=== PATIENT | male | born 1970 | race Caucasian/White ===

== ENCOUNTER 2018-07-11 16:16 | Emergency (ER) | payer SELFPAY ==
[2018-07-11 16:25] VITALS: BP 122/84
[2018-07-11] MEDS ORDERED: BUPIVACAINE HCL 0.5 % INJ/PF 30 ML SDV INJ ONE (16:38)
[2018-07-11] MEDS ORDERED: LIDOCAINE 2%/EPINEPHRINE INJ 20 ML VIAL INJ ONE (16:38)
[2018-07-11] MEDS ORDERED: PENICILLIN V POTASSIUM 500 MG TABLET PO ONE (16:39)
--- NOTE | 2018-07-11 16:40 | ER Document Report ---
ED General - General Chief Complaint: Toothache Stated Complaint: MOUTH PAIN Time Seen by Provider: 07/11/18 16:31 Notes: Patient is a 48-year-old male that presents to the emergency department for chief complaint of right dental pain. Patient states his been having pain for the past 3-4 days, but the pain got significantly worse yesterday and today, he describes the pain as a 10 out of 10, and the right lower mouth, Motrin was helping it but no longer, describes as a constant aching sensation. Worse with eating, or trying to bite down on any food. In cold water makes it much worse as well. He has not seen a dentist. He denies noting any fevers, chills, night sweats, chest pain or shortness of breath or nausea or vomiting. Past Medical History: Denies chronic medical conditions Past Surgical History: Orthopedic leg surgery Social History: Admits to smoking cigarettes, denies alcohol or illicit drug use. Family History: Reviewed and noncontributory for presenting illness Allergies: Reviewed, see documented allergy list. REVIEW OF SYSTEMS: Other than noted above, the 12 point review of systems was reviewed with the patient and were negative, all pertinent findings are included in the HPI. PHYSICAL EXAMINATION: Vital signs reviewed, nursing noted reviewed. GENERAL: Well-appearing, well-nourished and appears rather uncomfortable and in pain HEAD: Atraumatic, normocephalic. EYES: Eyes appear normal, extraocular movements intact, sclera anicteric, conjunctiva are normal. ENT: nares patent, oropharynx clear without exudates. Moist mucous membranes. Tooth #28 appears to be abscess, tender to palpate with tongue blade, and is completely fractured, at the base of the tooth, with exposed nerve. NECK: Normal range of motion, supple without lymphadenopathy LUNGS: Breath sounds clear to auscultation bilaterally and equal. No wheezes rales or rhonchi. HEART: Regular rate and rhythm without murmurs ABDOMEN: Soft, nontender, normoactive bowel sounds. No rebound, guarding, or rigidity. No masses appreciated. EXTREMITIES: Nontender, good range of motion, no pitting or edema. NEUROLOGICAL: No focal neurological deficits. Moves all extremities spontaneously Motor and sensory grossly intact on exam. PSYCH: Normal mood, normal affect. SKIN: Warm, Dry, normal turgor, no rashes or lesions noted on exposed skin TRAVEL OUTSIDE OF THE [place] IN LAST 30 DAYS: No - Related Data Allergies/Adverse Reactions: No Known Allergies Allergy (Verified 07/11/18 16:33) Past Medical History - Social History Smoking Status: Current Every Day Smoker Frequency of alcohol use: None Drug Abuse: None Family History: Reviewed & Not Pertinent Patient has suicidal ideation: No Patient has homicidal ideation: No Renal/ Medical History: Denies: Hx Peritoneal Dialysis Past Surgical History: Reports: Hx Orthopedic Surgery - right foot with screws Physical Exam - Vital signs Vitals: Temp Pulse BP Pulse Ox 98.4 F 86 122/84 97 07/11/18 16:24 07/11/18 16:24 07/11/18 16:24 07/11/18 16:24 Course - Re-evaluation Re-evalutation: Patient seen and examined, on his exam he had an abscessed right lower tooth, this was anesthetized as described below, patient tolerated procedure well, he was given a dose of Pen-Vee K, and naproxen, will be discharged home with Pen- Vee K 500 mg 4 times daily, follow-up with a dentist, and given Percocet to take as needed for pain while he finds a dentist. Patient agreeable to plan of care. - Vital Signs Vital signs: Temp Pulse Resp BP Pulse Ox 98.4 F 86 122/84 97 07/11/18 16:24 07/11/18 16:24 07/11/18 16:24 07/11/18 16:24 Procedures - Incision and Drainage Right Lower Type: Simple Anesthetic type: Other - Inferior alveolar nerve block Incision Method: Incision made with needle Amount/type of drainage: Small amount of bloody/purulent drainage Notes: Patient was anesthetized with an injection of a mixture of 0.5% bupivacaine, and 2% lidocaine with epinephrine, a total of 4 mL's, was injected into the trigone space on the right side of the mouth, which obtain a good inferior alveolar nerve block, with good anesthesia, patient's pain was completely resolved. The patient's abscessed tooth was then incised laterally on the gumline, with a small amount of purulent, bloody discharge. Patient tolerated well. Hemostasis obtained. Discharge - Discharge Clinical Impression: Dental abscess Condition: Stable Disposition: HOME, SELF-CARE Instructions: Dental Infection or Abscess ([facility]) Additional Instructions: Please follow-up with a dentist as soon as possible. Prescriptions: Naproxen [Naprosyn] 500 mg PO BID #30 tablet Oxycodone HCl/Acetaminophen [Percocet 5-325 mg Tablet] 1 tab PO Q8H PRN #10 tab PRN Reason: dental pain Penicillin V Potassium [Penicillin Vk 500 mg Tablet] 500 mg PO QID #28 tablet Referrals: [facility] [Provider Group] - Follow up tomorrow [facility] [Provider Group] - Follow up tomorrow
== END 2018-07-11 17:10 | disposition home or self-care (01) ==
LOC: ER 16:16
DX: K04.7 Periapical abscess without sinus (principal); K08.89 Other specified disorders of teeth and supporting structures; F17.210 Nicotine dependence, cigarettes, uncomplicated
CPT/HCPCS: 99283; 40800; J3490 ×2